=== PATIENT | female | born 1965 | race Caucasian/White ===

== ENCOUNTER 2021-08-11 10:25 | Emergency (ER) | payer OTHER ==
--- NOTE | 2021-08-11 10:52 | ED Physician Documentation ---
PD HPI HEENT - Stated complaint Stated Complaint: MOUTH SORES - Chief complaint Chief Complaint: Heent - History obtained from History obtained from: Patient - History of Present Illness Timing - onset: How many days ago (6-7) Timing - duration: Days (6-7) Timing - details: Gradual onset, Still present (has gotten severe pain and sores the past 4 days particularly.) Location: Mouth Improves: No: Medication Worsens: Swalllowing, Everything Associated symptoms: No: Fever, Congestion, Swollen nodes, Cough Similar symptoms before: Has not had sx before Recently seen: Clinic (had tooth extraction and root canal by Jeferson Jarrett on 08/01. Rx Amox and some pain meds. Finished the Amox several days ago. Noted sore left upper lip initially and then has progressed to whole of mouth, throat and feeling pain with swallowing in mid esophageal area. unable to tolerate eating.), Other (seen at [facility] 3 days ago and Rx "magic mouthwash" which patient says stung worse.) Review of Systems Constitutional: denies: Fever, Chills Nose: denies: Rhinorrhea / runny nose, Congestion Throat: reports: Oral lesions / sores (multiple ulcerative lesions.), Sore throat Cardiac: reports: Chest pain / pressure (mid esophageal area pain with swallowing.) Respiratory: denies: Cough GI: reports: Nausea. denies: Abdominal Pain, Vomiting Skin: denies: Rash, Lesions Neurologic: denies: Near syncope (but feeling lightheaded with standing.) PD PAST MEDICAL HISTORY - Past Medical History Cardiovascular: None Respiratory: None Neuro: None Endocrine/Autoimmune: None - Present Medications Home Medications: Ambulatory Orders Medication Instructions Recorded Confirmed Doxycycline Hyclate 100 mg PO BID 7 Days #10 cap 08/11/21 Famotidine [Pepcid] 20 mg PO BID #14 tablet 08/11/21 Ondansetron Odt [Zofran] 4 mg TL Q6H PRN #10 tablet 08/11/21 Valacyclovir HCl [Valtrex] 1,000 mg PO TID #15 tablet 08/11/21 dexAMETHasone [Decadron] 4 mg PO DAILY #5 tablet 08/11/21 oxyCODONE [Roxicodone] 5 mg PO Q6H PRN #15 tablet 08/11/21 - Allergies Allergies/Adverse Reactions: Allergies Allergy/AdvReac Type Severity Reaction Status Date / Time No Known Drug Allergies Allergy Verified 08/11/21 10:44 PD ED PE NORMAL - Vitals Vital signs reviewed: Yes - General General: Alert and oriented X 3, Well developed/nourished - HEENT HEENT: Moist mucous membranes. No: Pharynx benign (mouth generally with multiple rounded to oval superficially ulcerative lesions. General red base. No peeling of tissue. face without lesions. ) - Neck Neck: Supple, no meningeal sign, No adenopathy - Cardiac Cardiac: RRR (borderline tachycardia), No murmur - Respiratory Respiratory: Clear bilaterally - Abdomen Abdomen: Soft, Non tender - Derm Derm: Normal color, Warm and dry, No rash Results - Vitals Vitals: Vital Signs - 24 hr 08/11/21 08/11/21 10:31 14:31 Temperature 36.6 C 37.0 C Heart Rate 96 92 Respiratory 16 14 Rate Blood Pressure 128/74 111/72 O2 Saturation 99 95 Oxygen O2 Source Room air - Labs Labs: Laboratory Tests 08/11/21 12:00 Sodium 138 Potassium 4.0 Chloride 103 Carbon Dioxide 24 Anion Gap 11.0 BUN 9 Creatinine 0.7 Estimated GFR (MDRD) 88 L Glucose 99 Calcium 9.0 Total Bilirubin 0.6 AST 18 ALT 13 Alkaline Phosphatase 49 Total Protein 8.7 H Albumin 3.7 Globulin 5.0 H Albumin/Globulin Ratio 0.7 L Lipase 20 L PD MEDICAL DECISION MAKING - ED course Complexity details: re-evaluated patient (she is feeling much much better with meds and IV fluids. ), considered differential (stomatitis without general rash, so unlikely allergic rxn to Amox. started at edge of lip then general mouth, so most inclined to Dx herpetic stomatitis. ), d/w patient Departure - Departure Disposition: Home, Self Care Clinical Impression: Stomatitis Condition: Stable Record reviewed to determine appropriate education?: Yes Instructions: ED Stomatitis Ch Follow-Up: Jeferson Jarrett DDS [Provider Admit Priv/Credential] - Prescriptions: dexAMETHasone [Decadron] 4 mg PO DAILY #5 tablet Doxycycline Hyclate 100 mg PO BID 7 Days #10 cap Famotidine [Pepcid] 20 mg PO BID #14 tablet oxyCODONE [Roxicodone] 5 mg PO Q6H PRN #15 tablet PRN Reason: Pain Valacyclovir HCl [Valtrex] 1,000 mg PO TID #15 tablet Ondansetron Odt [Zofran] 4 mg TL Q6H PRN #10 tablet PRN Reason: Nausea / Vomiting Comments: Frequent fluids to maintain good hydration. You can use diphenhydramine liquid 5 to 10 mL every 6 hours if needed for oral pain. Try to swish it around in your mouth before swallowing to help with topical effect. Tylenol 4 times daily for pain. To that add oxycodone every 4-6 hours if needed for pain. Famotidine acid reducing medication twice daily for a week to help with the esphageal irritation component. Decadron for inflammation daily for 5 days. This looks likely to be a viral infection. Take the Valacyclovir 3 times daily for the next 5 days. You can use ondansetron if needed for nausea. I transmitted your prescriptions to [facility] in [place]. I would anticipate improvement over the next 2 to 3 days. Recheck if not improving well in that timeframe and return if worse. I am prescribing a short course of narcotic pain medication for you. These are potentially dangerous and addictive medications that should be used carefully. These medications may constipate you. Take an exno-pso-iuvyjvm stool softener such as docusate twice daily with plenty of water while taking these medications. If you go 24 hours without a bowel movement, take [id number] MiraLAX, per package instructions. Do not drink or drive while taking these medications. If you received narcotic or sedating medications while in the emergency department do not drive for 24 hours. Store this medication in a safe, secure place and out of reach of children. It is a violation of federal law to give or sell this medication to another person or to use in a manner other than prescribed. The ED will not refill narcotic prescriptions, including prescriptions lost or stolen. You can dispose of unwanted medications at the [facility] office or at several pharmacies such as [facility]. Discharge Date/Time: 08/11/21 14:31
[2021-08-11] MEDS: KETOROLAC 15 MG/ML VIAL IVP STA (11:53)
[2021-08-11] MEDS: SODIUM CHLORIDE 0.9% 1,000 ML IV STA ×2 (11:53→12:57)
[2021-08-11] MEDS: DEXAMETHASONE 10 MG/ML VIAL IVP STA (11:53)
[2021-08-11] MEDS: FAMOTIDINE 20 MG/2 ML VIAL IVP STA (11:54)
[2021-08-11] MEDS: HYDROmorphone 0.5 MG/0.5 ML SYRINGE IVP STA (11:54)
[2021-08-11] MEDS: diphenhydrAMINE ELIXIR 25 MG/10 ML UDC PO STA (11:58)
[2021-08-11] MEDS: DOXYCYCLINE 100 MG TABLET PO STA (12:03)
[2021-08-11 12:23] LABS: ALBUMIN 3.7 g/dL (3.2-5.5); ALBUMIN/GLOBULIN RATIO 0.7 (1.0-2.2); BILIRUBIN,TOTAL 0.6 mg/dL (0.2-1.0); CREATININE 0.7 mg/dL (0.4-1.0); TOTAL PROTEIN 8.7 g/dL (6.7-8.2)
[2021-08-11] MEDS: ACYCLOVIR INJ 500 MG in SODIUM CHLORIDE 0.9% 250 ML IV STA (12:52)
[2021-08-11 14:32] VITALS: BP 111/72
== END 2021-08-11 14:31 | disposition home or self-care (01) ==
LOC: ED 10:25
DX: K12.1 Other forms of stomatitis (principal)
CPT/HCPCS: 36415; 80053; 83690; 96365; 96366; 96375; 99284; 99285; A9270; J0133; J1170

== ENCOUNTER 2021-10-25 07:59 | Outpatient (CLI) | payer OTHER ==
--- NOTE | 2021-10-26 14:10 | Mammography Report ---
BILATERAL DIGITAL SCREENING MAMMOGRAM 3D/2D WITH EXAGGERATED CC: 10/25/2021 CLINICAL: Routine screening. Baseline exam Family history of breast cancer. No prior exams were available for comparison. The tissue of both breasts is heterogeneously dense. T his may lower the sensitivity of mammography. No significant masses, calcifications, or other findings are seen in either breast. IMPRESSION: NEGATIVE There is no mammographic evidence of malignancy. A 1 year screening mammogram is recommended. This exam was interpreted at Station ID: [id number]. NOTE: For mammograms, a report in lay terms will be sent to the patient. Approximately 15% of breast malignancies will not be visualized mammographically. In the management of a palpable breast mass, a negative mammogram must not discourage biopsy of a clinically suspicious lesion. Electronically Signed By: Roc avery/dani:10/25/2021 08:59:01 ACR BI-RADS Category 1: Negative 3341F PARENCHYMAL PATTERN: (D) - The breast(s) demonstrate(s) heterogeneously dense fibroglandular kaden schultz. BI-RADS CATEGORY: (1) - 1 RECOMMENDATION: (ANNUAL) - Recommend routine annual screening mammography. [id number] 1 year screening LATERALITY: (B)
== END 2021-10-25 08:00 | disposition home or self-care (01) ==
LOC: DI.S 07:59
PROVIDERS: ATTEND Nurse Practitioner Family
DX: Z12.31 Encounter for screening mammogram for malignant neoplasm of breast (principal); Z80.3 Family history of malignant neoplasm of breast

== ENCOUNTER 2021-11-16 10:14 | Outpatient (CLI) | payer OTHER ==
[2021-11-16 14:34] LABS: BASOPHILS % (AUTO) 0.3 %; EOSINOPHILS % (AUTO) 0.3 %; HCT - HEMATOCRIT 31.9 % (37.0-47.0); HGB - HEMOGLOBIN 10.4 g/dL (12.0-16.0); MEAN CORPUSCULAR HEMOGLOBIN 29.5 pg (27.0-31.0); MEAN CORPUSCULAR HGB CONC 32.6 g/dL (32.0-36.0); MEAN CORPUSCULAR VOLUME 90.6 fL (81.0-99.0); MEAN PLATELET VOLUME 9.8 fL (7.9-10.8); MONOCYTES # (AUTO) 0.7 10^3/uL (0.0-1.0); MONOCYTES % (AUTO) 9.5 %; NEUTROPHILS # (AUTO) 4.8 10^3/uL (1.5-6.6); NEUTROPHILS % (AUTO) 63.5 %; PLT - PLATELET COUNT 299 10^3/uL (130-450); RED BLOOD COUNT 3.52 10^6/uL (4.20-5.40); RED CELL DISTRIBUTION WIDTH 13.6 % (12.0-15.0); WHITE BLOOD COUNT 7.6 x10^3/uL (4.8-10.8)
[2021-11-16 15:31] LABS: ALBUMIN 3.2 g/dL (3.2-5.5); ALBUMIN/GLOBULIN RATIO 0.6 (1.0-2.2); BILIRUBIN,TOTAL 0.3 mg/dL (0.2-1.0); CALCIUM 8.9 mg/dL (8.5-10.3); CREATININE 0.9 mg/dL (0.4-1.0); POTASSIUM 3.4 mmol/L (3.5-5.0); TOTAL PROTEIN 8.6 g/dL (6.7-8.2)
== END 2021-11-16 10:15 | disposition home or self-care (01) ==
LOC: LAB.S 10:14
PROVIDERS: ATTEND Internal Medicine
DX: B20 Human immunodeficiency virus [HIV] disease (principal)
CPT/HCPCS: 36415; 80053; 85025

== ENCOUNTER 2021-11-18 14:41 | Outpatient (CLI) | payer OTHER ==
[2021-11-18 16:01] LABS: BILIRUBIN,URINE NEGATIVE (NEGATIVE); GLUCOSE, URINE (UA) NEGATIVE (NEGATIVE); KETONES,URINE (UA) NEGATIVE (NEGATIVE); LEUKOCYTE ESTERASE, URINE TRACE (NEGATIVE); NITRITE,URINE NEGATIVE (NEGATIVE); OCCULT BLOOD,URINE SMALL (NEGATIVE); PROTEIN,URINE NEGATIVE (NEGATIVE); UROBILINOGEN,URINE 0.2 (NORMAL) E.U./dL (NORMAL)
[2021-11-18 16:46] LABS: BACTERIA,URINE Many /HPF (None Seen); CLARITY,URINE CLEAR (CLEAR); SQUAMOUS EPITHELIAL CELL,UR MOD Squamous (<= Few); WBC CLUMPS,URINE PRESENT; WBC,URINE >25 /HPF (0-5)
== END 2021-11-18 14:42 | disposition home or self-care (01) ==
LOC: LAB 14:41
PROVIDERS: ATTEND Internal Medicine
DX: N30.90 Cystitis, unspecified without hematuria (principal)
CPT/HCPCS: 81001; 87077; 87086; 87181

== ENCOUNTER 2023-10-23 07:56 | Outpatient (CLI) | payer OTHER ==
--- NOTE | 2023-10-24 09:08 | Mammography Report ---
BILATERAL DIGITAL SCREENING MAMMOGRAM 3D/2D: 10/23/2023 CLINICAL: Routine screening. Family history of breast cancer. Comparison is made to exam dated: 10/25/2021 mammogram - [facility]. Both breasts are extremely dense, which lowers the sensitivity of mammography (category d />75% gland ular tissue). No significant masses, calcifications, or other findings are seen in either breast. There has been no significant interval change. IMPRESSION: NEGATIVE There is no mammographic evidence of malignancy. A 1 year screening mammogram is recommended. Based on the Tyrer Cuzick model (a risk assessment model) the patient's lifetime risk is 14.4% and he r 10 year risk is 4.8%. According to the ACR, ACS, and NCCN guidelines, an annual breast MRI exam esthela ng with mammogram is recommended if the patient's lifetime risk is 20% or greater. This exam was interpreted at Station ID: [id number]. NOTE: For mammograms, a report in lay terms will be sent to the patient. Approximately 15% of breast malignancies will not be visualized mammographically. In the management of a palpable breast mass, a negative mammogram must not discourage biopsy of a clinically suspicious lesion. Electronically Signed By: Soraya marquez/dani:10/23/2023 18:04:24 ACR BI-RADS Category 1: Negative 3341F PARENCHYMAL PATTERN: (VD) - The breast(s) demonstrate(s) extremely dense parenchyma, limiting the sen sitivity of mammography. BI-RADS CATEGORY: (1) - 1 RECOMMENDATION: (ANNUAL) - Recommend routine annual screening mammography. [id number] 1 year screening LATERALITY: (B)
== END 2023-10-23 07:57 | disposition home or self-care (01) ==
LOC: DI.S 07:56
PROVIDERS: ATTEND Nurse Practitioner Family
DX: Z12.31 Encounter for screening mammogram for malignant neoplasm of breast (principal); R92.30 Dense breasts, unspecified; Z80.3 Family history of malignant neoplasm of breast